=== PATIENT | male | born 1965 | race Two or more races ===

== ENCOUNTER 2020-06-04 05:44 | Emergency (ER) | payer SELFPAY ==
[~2020-06-04] VITALS: Ht 170.2 cm; Wt 75.0 kg
[2020-06-04] MEDS ORDERED: KETOROLAC 60MG/2ML VIAL IM ONE (06:15)
[2020-06-04] MEDS ORDERED: CLONIDINE 0.1MG TABLET PO ONE (08:00)
[2020-06-04 08:47] VITALS: BP 156/92
== END 2020-06-04 08:52 | disposition home or self-care (01) ==
LOC: ER 05:44
DX: S02.2XXA Fracture of nasal bones, initial encounter for closed fracture (principal); Y08.89XA Assault by other specified means, initial encounter; Y93.89 Activity, other specified; Y92.89 Other specified places as the place of occurrence of the external cause; Y99.8 Other external cause status; I10 Essential (primary) hypertension
CPT/HCPCS: 70450; 70486; 72125; 73562; 96372; 99285; J1885